=== PATIENT | male | born 1955 | race Two or more races ===

== ENCOUNTER 2025-03-01 08:40 | Outpatient (CLI) | payer MEDICARE ==
[2025-03-01 10:18] LABS: Estimated GFR - POC 93.0
== END 2025-03-01 08:41 | disposition home or self-care (01) ==
LOC: MRI 08:40
PROVIDERS: ATTEND Internal Medicine Hematology & Oncology
DX: C22.0 Liver cell carcinoma (principal); R16.0 Hepatomegaly, not elsewhere classified
CPT/HCPCS: 36415; 74183; 82565